=== PATIENT | female | born 1965 | race Caucasian/White ===

== ENCOUNTER 2017-06-08 16:39 | Emergency (ER) | payer SELFPAY ==
[2017-06-08] MEDS ORDERED: NITROGLYCERIN 0.4 MG 25 EA TAB SL ONE ×2 (16:43→18:32)
[2017-06-08 16:53] VITALS: TEMP 98.9
--- NOTE | 2017-06-08 17:03 | ED.PDOC ---
History of Present Illness - General Chief Complaint: Chest Pain/LA Stated Complaint: Chest pressure, tightness Time Seen by Provider: 06/08/17 17:01 Source: patient - History of Present Illness Initial Comments: Renée Locke 52 y/o female stated while she was picking pecans this afternoon felt sharp pains on her jaw got sweaty it went away then afterwards had stabbing chest pains radiated to her back called up ems and was initially given ASA and NTG on way to hospital .On her arrival here just feeling discomfort on his chest.Stated had previous episodes 2 1/2 years ago and underwent stress testing result were never relayed to her.Then later on stated she had it on and off sharp chest pains for the last one week.She stated was given Metoprolol took it for several months but stopped taking it and also not seeing her md regularly due to financial reasons.She denies SOB,N/V,dizziness. Timing/Duration: 1-3 hours Location: central Activities at Onset: activity Prior Chest Pain/Cardiac Workup: stress test Improving Factors: nothing Worsening Factors: nothing Nitro Today/Relief: 0.4 mg x 1, provided by EMS Aspirin Treatment Today: 325 mg x 1, provided by EMS Associated Symptoms: diaphoresis, other - see hpi Allergies/Adverse Reactions: Allergies NO KNOWN ALLERGY Allergy (Verified 06/08/17 16:46) Home Medications: Ambulatory Orders Lisinopril & Hydrochlorothiazi [Lisinopril/Hctz 20-25 mg] 1 tab PO DAILY #30 tab 06/08/17 Nitroglycerin 0.4 mg Tab [Nitrostat] 0.4 mg SL .Q5M PRN #1 bttl 06/08/17 Review of Systems - Review of Systems EENTM: States: no symptoms reported Respiratory: States: no symptoms reported Cardiology: States: see HPI Gastrointestinal/Abdominal: States: no symptoms reported Genitourinary: States: no symptoms reported Musculoskeletal: States: no symptoms reported Skin: States: no symptoms reported Neurological: States: no symptoms reported Past Medical History (General) - Patient Medical History Hx Stroke: No Hx Cardiac Disorders: Yes - LA Hx Congestive Heart Failure: No Hx Hypertension: No Hx Diabetes: No Hx Cancer: Yes - skin Surgical History: appendectomy, cholecystectomy, Hysterectomy, other - hysterectomy - Vaccination History Hx Influenza Vaccination: No Hx Pneumococcal Vaccination: No - Social History Hx Tobacco Use: Yes Years Tobacco Use: 20 Cigarettes Packs Per Day: 20 Family Medical History - Family History Mother Living Status: Hx Family Cancer: Yes - Mesothelioma-mom;Brain-dad Physical Exam - Physical Exam General Appearance: Alert, Anxious, No apparent distress Eyes, Ears, Nose, Throat Exam: PERRL/EOMI, normal ENT inspection, pharynx normal Neck: non-tender, full range of motion, supple, normal inspection Respiratory: chest non-tender, lungs clear, normal breath sounds Cardiovascular/Chest: normal peripheral pulses, regular rate, rhythm, no gallop , no murmur, tachycardia - heart rate 103 Peripheral Pulses: radial,right: 2+, radial,left: 2+ Gastrointestinal/Abdominal: normal bowel sounds, non tender, soft, no organomegaly Extremity: non-tender, normal inspection, no pedal edema, no calf tenderness Neurologic: no motor/sensory deficits, alert, normal mood/affect, oriented x 3 Skin Exam: normal color, warm/dry Lymphatic: no adenopathy Progress - Progress Progress: 06/08/17 17:31 Last Vital Signs Temp 98.9 F 06/08/17 16:47 Pulse 88 06/08/17 17:25 Resp 20 06/08/17 17:25 BP 162/85 06/08/17 17:25 Pulse Ox 95 06/08/17 17:25 - Results/Orders Results/Orders: Last Vital Signs Temp 98.9 F 06/08/17 16:47 Pulse 82 06/08/17 18:25 Resp 20 06/08/17 18:25 BP 168/87 06/08/17 18:25 Pulse Ox 96 06/08/17 18:25 Laboratory Tests 06/08/17 06/08/17 06/08/17 17:05 17:05 18:50 WBC 8.8 RBC 5.34 Hgb 15.7 Hct 46.1 MCV 86.4 MCH 29.5 MCHC 34.1 RDW 12.7 Plt Count 277 MPV 8.6 Absolute Neuts (auto) 5.60 Absolute Lymphs (auto) 2.50 Absolute Monos (auto) 0.50 Absolute Eos (auto) 0.20 Absolute Basos (auto) 0.10 Neutrophils % 63.4 Lymphocytes % 28.8 Monocytes % 5.1 Eosinophils % 1.8 Basophils % 0.9 PT 10.7 INR 0.950 PTT (SP) 34.4 D-Dimer, Quantitative < 230 Sodium 136 Potassium 4.0 Chloride 103 Carbon Dioxide 27 Anion Gap 10.0 L BUN 10 Creatinine 0.52 L BUN/Creatinine Ratio 19.2 Random Glucose 107 H Serum Osmolality 271.5 L Calcium 9.4 Magnesium 2.3 Total Bilirubin 0.5 Direct Bilirubin 0.1 Indirect Bilirubin 0.4 AST 28 ALT 43 Alkaline Phosphatase 99 Creatine Kinase 31 CK-MB (CK-2) 1.1 CK-MB (CK-2) % Not Reportable Troponin I < 0.02 < 0.02 B-Natriuretic Peptide < 5.0 Serum Total Protein 8.1 Albumin 4.6 2000H Recommended hospital admission for continue cardiac enzyme monitoring 24 h explained her risk factor smoking and high blood pressure and non compliance with Md follow up with the presence of her but declined to be hospitalized.Recommended to put her on nitropatch and take it out in am once she gets her SL NTG and her blood pressure medications. - EKG/XRAY/CT EKG: Sinus, Tachy, nonspecific ST T wave Chg Comments: hear rate 100;LAE - Additional EKG/XRAY/Consults EKG #2: Sinus, nonspecific ST T wave Chg Comments: heart rate 80 Departure - Departure Clinical Impression: Nicotine dependence, cigarettes, uncomplicated Chest pain Qualifiers: Chest pain type: unspecified Qualified Code(s): R07.9 - Chest pain, unspecified Hypertension Qualifiers: Hypertension type: unspecified Qualified Code(s): I10 - Essential (primary) hypertension Time of Disposition: 20:07 Disposition: Discharge to Home or Self Care Condition: Fair Departure Forms: ED Discharge - Pt. Copy, Patient Portal Self Enrollment Instructions: DI for Chest Pain, Smoking and Smoking Cessation in Relation to Mortality in Women, Smoking Cessation for Older Adults: It's Not Too Late!, All Forms of Smoking Are Bad for You, Smoking Cessation Drugs: Nicotine Replacement Products Referrals: Tobias Magallon MD [Primary Care Provider] - 1-2 Weeks Prescriptions: Lisinopril & Hydrochlorothiazi [Lisinopril/Hctz 20-25 mg] 1 tab PO DAILY #30 tab Nitroglycerin 0.4 mg Tab [Nitrostat] 0.4 mg SL .Q5M PRN #1 bttl PRN Reason: Chest Pain Home Medications: Ambulatory Orders Lisinopril & Hydrochlorothiazi [Lisinopril/Hctz 20-25 mg] 1 tab PO DAILY #30 tab 06/08/17 Nitroglycerin 0.4 mg Tab [Nitrostat] 0.4 mg SL .Q5M PRN #1 bttl 06/08/17 Additional Instructions: Follow up with your primary Md 06/11/2017;RETURN TO EMERGENCY ROOM NEEDED; Take Baby aspirin 81 mg one tablet daily
[2017-06-08 19:02] VITALS: BP 168/87; O2SAT 96
[2017-06-08] MEDS ORDERED: TETANUS,DIPHTHERIA,PERTUSSIS 1 EA SYG IM ONE (19:10)
[2017-06-08] MEDS ORDERED: NITROGLYCERIN 0.4 MG/HR PATCH TOP ONE (20:08)
== END 2017-06-08 20:20 | disposition home or self-care (01) ==
LOC: ER 16:39
DX: R07.9 Chest pain, unspecified (principal); I10 Essential (primary) hypertension; I25.2 Old myocardial infarction; F17.210 Nicotine dependence, cigarettes, uncomplicated; Z91.19 Patient's noncompliance with other medical treatment and regimen